=== PATIENT | male | born 2000 | race African-American/Black ===

== ENCOUNTER 2023-10-14 20:32 | Emergency (ER) | payer BC, MEDICAID ==
[2023-10-14 21:59] LABS: Influenza A by NAA Not Detected (NotDetected); Influenza B by NAA Not Detected (NotDetected); SARS-CoV-2 NAA Rapid Test DETECTED (NotDetected)
== END 2023-10-14 22:37 | disposition home or self-care (01) ==
LOC: CSHERS 20:32
DX: U07.1 COVID-19 (principal); E66.01 Morbid (severe) obesity due to excess calories
CPT/HCPCS: 99283